=== PATIENT | male | born 1955 | race African-American/Black ===

== ENCOUNTER 2023-05-05 10:16 | Emergency (ER) | payer OTHER ==
[~2023-05-05] VITALS: Ht 182.9 cm; Wt 100.0 kg
[2023-05-05 10:18] VITALS: O2SAT 100
[2023-05-05 10:50] LABS: BASOPHILS % 0.1 % (0.0-2.0); EOSINOPHILS % 0.4 % (0.0-5.0); HEMATOCRIT. 41.9 % (42.0-52.0); HEMOGLOBIN. 13.7 g/dL (14.0-18.0); LYMPHOCYTES % 9.6 % (20.0-50.0); MEAN CORPUSCULAR HEMOGLOBIN 30.1 pg (28.0-32.0); MEAN CORPUSCULAR HGB CONC 32.7 g/dL (31.0-37.0); MEAN CORPUSCULAR VOLUME 91.9 fL (80.0-94.0); MEAN PLATELET VOLUME 8.3 fl (7.4-10.4); MONOCYTES % 12.6 % (2.0-8.0); NEUTROPHILS % 77.3 % (40.0-76.0); PLATELET 186 x1000/uL (130-400); RED BLOOD CELL COUNT 4.56 mill/uL (4.7-6.1); RED CELL DISTRIBUTION WIDTH 13.8 % (11.6-14.6); WHITE BLOOD COUNT 8.8 x1000/uL (4.5-11.0)
[2023-05-05 11:01] LABS: INR 1.2
[2023-05-05 11:34] LABS: CLARITY URINE CLEAR (CLEAR); COLOR URINE YELLOW (YELLOW); GLUCOSE URINE NEGATIVE (NEGATIVE); KETONES URINE NEGATIVE (NEGATIVE); LEUKOCYTE ESTERASE URINE TRACE (NEGATIVE); NITRITE URINE NEGATIVE (NEGATIVE); OCCULT BLOOD URINE NEGATIVE (NEGATIVE); PH URINE >=9.0 (4.5-8.0); PROTEIN URINE TRACE (NEGATIVE); SPECIFIC GRAVITY URINE 1.014 (1.005-1.030)
[2023-05-05 11:47] LABS: BG BASE EXCESS -0.5 mmol/L (-2.0-2.0); BG CARBOXYHEMOGLOBIN 0.4 % (0.5-1.5); BG DEOXYHEMOGLOBIN 1.2 % (0.0-5.0); BG FRACTION INSPIRED OXYGEN 36; BG HCO3 ACT 20.9 mmol/L (22.0-26.0); BG METHEMOGLOBIN 0.4 % (0.0-1.5); BG OXYGEN SATURATION 98.8 % (92.0-98.5); BG PCO2 26.6 mmHg (35.0-45.0); BG PH 7.514 (7.350-7.450); BG PO2 115.5 mmHg (75.0-100.0); BG SAMPLE SITE LEFT RADIAL; BG TOTAL HEMOGLOBIN 14.2 g/dL (12.0-18.0); BG VENT MODE NASAL CANNULA
[2023-05-05 11:48] LABS: *AMPHETAMINES SCREEN URINE NEGATIVE (NEGATIVE); *BARBITURATES SCREEN URINE NEGATIVE (NEGATIVE); *BENZODIAZEPINES SCREEN URINE NEGATIVE (NEGATIVE); *COCAINE SCREEN URINE NEGATIVE (NEGATIVE); CANNABINOID URINE SCREEN NEGATIVE (NEGATIVE); ECSTASY MDMA SCREEN URINE NEGATIVE (NEGATIVE); METHADONE URINE SCREEN Neg (NEGATIVE); OPIATES URINE SCREEN NEGATIVE (NEGATIVE); PHENCYCLIDINE URINE SCREEN NEGATIVE (NEGATIVE)
[2023-05-05 11:54] LABS: ALANINE AMINOTRANSFERASE 37 IU/L (10-49); ALBUMIN 4.1 g/dL (3.2-4.8); ASPARTATE AMINOTRANSFERASE 36 IU/L (<34); CALCIUM 10.2 mg/dL (8.7-10.4); CARBON DIOXIDE 22 mEq/L (21-32); CHLORIDE 104 mEq/L (98-107); CREATININE 1.1 mg/dL (0.6-1.3); GLUCOSE 97 mg/dL (70-105); POTASSIUM 4.1 mEq/L (3.5-5.1); PROTEIN TOTAL 7.3 g/dL (6.0-8.3); SODIUM 137 mEq/L (136-145); TROPONIN I HIGH SENSITIVITY 4 ng/L (3.0-53); UREA NITROGEN BLOOD 9 mg/dL (9-23)
[2023-05-05 11:56] LABS: ETHANOL BLOOD < 10 mg/dL (<10)
[2023-05-05 12:02] LABS: SQUAMOUS EPITHELIAL CELL URINE RARE /lpf (RARE/1+)
[2023-05-05 12:03] LABS: BACTERIA URINE 2+; RBC URINE NONE SEEN /hpf (0-2); WBC URINE 15-25 /hpf (0-2)
[2023-05-05] MEDS ORDERED: CEFTRIAXONE 1GM PREMIX 50 ML IV ONE (13:15)
[2023-05-05 17:00] VITALS: BP 115/70; PULSE 86; RESP 17; TEMP 98.4
== END 2023-05-05 17:23 | disposition short-term general hospital (02) ==
LOC: ER 10:16 → CANBEDREQ 13:37 → ER 17:23
DX: G93.40 Encephalopathy, unspecified (principal); R91.8 Other nonspecific abnormal finding of lung field; R41.82 Altered mental status, unspecified
CPT/HCPCS: 80053; 80305; 81003; 80320; 83605; 85025; 85610; 87040; 87086; 87186; 84484; 87077; 36415; 84145; 71045; 70450; 82805; 82375; 93005; 96365; 99285; 36600; J0696; G0480